=== PATIENT | female | born 1980 | race Hispanic/Latino ===

== ENCOUNTER 2024-12-18 22:44 | Emergency (ER) | payer BC, OTHER ==
[~2024-12-18] VITALS: Ht 162.6 cm; Wt 106.6 kg
[2024-12-18 23:15] VITALS: TEMP 98.1
[2024-12-18] MEDS: SODIUM CHLORIDE 0.9% 1000ML 1,000 ML IV ONE (23:23)
[2024-12-18] MEDS: ONDANSETRON HCL INJ 2MG/ML 2ML 2 MG/ML VIAL IV STA (23:23)
[2024-12-18] MEDS: DICYCLOMINE HCL 20 MG/2 ML VIAL IM ONE (23:23)
[2024-12-18 23:25] LABS: BASOPHILS % 0.3 % (0.0-1.0); EOSINOPHILS # (AUTO) 0.3 (0.0-0.4); EOSINOPHILS % 2.3 % (0.0-6.0); HEMATOCRIT 38.1 % (34.2-44.1); HEMOGLOBIN 12.7 g/dL (12.0-16.0); LYMPHOCYTES # (AUTO) 4.5 (1.0-3.2); MEAN CORPUSCULAR HGB CONC 33.3 g/dL (31-35); MONOCYTES # (AUTO) 0.9 (0.2-0.8); MONOCYTES % 8.7 % (4.4-11.3); NEUTROPHILS % 46.5 % (38.7-80.0); PLATELET COUNT 229 x10e3/uL (140-360); RED BLOOD COUNT 3.97 x10e6/uL (3.6-5.1); RED CELL DISTRIBUTION WIDTH 13.1 % (11.7-14.4); WHITE BLOOD COUNT 10.75 x10e3/uL (4.8-10.8)
[2024-12-18] MEDS: KETOROLAC TROMETHAMINE 30 MG/ML VIAL IV STA (23:26)
[2024-12-18 23:38] LABS: LIPASE 45 U/L (8-78)
[2024-12-18 23:40] LABS: ALBUMIN 3.8 g/dL (3.5-5.0); ALBUMIN/GLOBULIN RATIO 1.2 (0.8-2.0); ANION GAP 13.2 mmol/L (8-16); BILIRUBIN,TOTAL 0.2 mg/dL (0.2-1.2); CALCIUM 8.4 mg/dL (8.4-10.2); CREATININE, SERUM 0.75 mg/dL (0.57-1.11); TOTAL PROTEIN 6.9 g/dL (6.5-8.1)
[2024-12-18 23:45] LABS: POTASSIUM 3.2 mmol/L (3.5-5.1)
[2024-12-18 23:46] LABS: TROPONIN I < 0.001 ng/mL (0-0.300)
[2024-12-19] MEDS: Morphine 4mg INJECTION 4 MG/ML INJ IV ONE (00:22)
[2024-12-19] MEDS ORDERED: HALOPERIDOL LACTATE 5 MG/ML VIAL IV ONE (01:00)
[2024-12-19] MEDS: HYDROMORPHONE 1MG/1ML INJ IV STA (01:11)
[2024-12-19 01:12] VITALS: PULSE 63; RESP 18
[2024-12-19] MEDS ORDERED: IOPAMIDOL 370 MG/ML 100 ML INFUS..BTL INJ ONE (01:43)
[2024-12-19] MEDS ORDERED: ONDANSETRON ODT4 MG SL (02:21)
[2024-12-19] MEDS ORDERED: PANTOPRAZOLE SO40 MG PO (02:21)
[2024-12-19] MEDS ORDERED: DICYCLOMINE HCL20 MG PO (02:21)
[2024-12-19 02:40] LABS: BILIRUBIN,URINE NEGATIVE (NEGATIVE); CLARITY,URINE CLEAR (CLEAR); COLOR,URINE YELLOW (YELLOW); GLUCOSE, URINE 1+ (NEGATIVE); KETONES,URINE NEGATIVE (NEGATIVE); LEUKOCYTE ESTERASE ,URINE NEGATIVE (NEGATIVE); NITRITE,URINE NEGATIVE (NEGATIVE); PH,URINE 6.5 (5 - 7); PROTEIN,URINE DIPSTICK NEGATIVE (NEGATIVE); URINE UROBILINOGEN 0.2 mg/dL (0.2 - 1)
[2024-12-19 02:50] LABS: BACTERIA,URINE FEW /HPF; EPITHELIAL CELLS,URINE MODERATE /LPF; MUCUS,URINE FEW (RARE); RBC,URINE 0-5 /HPF (0-5); WBC,URINE (MAN) 0-5 /HPF (0-5)
[2024-12-19 02:56] VITALS: BP 127/78; PULSE 76; RESP 19; TEMP 97.6; O2SAT 98
== END 2024-12-19 03:05 | disposition home or self-care (01) ==
LOC: ER 23:13
DX: R10.11 Right upper quadrant pain (principal); N20.0 Calculus of kidney; R11.2 Nausea with vomiting, unspecified; K76.0 Fatty (change of) liver, not elsewhere classified; R16.0 Hepatomegaly, not elsewhere classified
CPT/HCPCS: 36415; 74177; 76705; 80053; 81001; 83690; 84484; 84702; 85025; 93005; 99284; J0500; J1171; J1885; J2270; J2405; J2470; J7030; Q9967